=== PATIENT | female | born 1960 | race Caucasian/White ===

== ENCOUNTER 2021-12-17 13:00 | Emergency (ER) | payer OTHER ==
[~2021-12-17] VITALS: Ht 167.6 cm; Wt 86.2 kg
[2021-12-17] MEDS ORDERED: AMOCLA875 PO ×2 (13:27→13:44)
== END 2021-12-17 13:58 | disposition home or self-care (01) ==
LOC: ER 13:00
DX: S61.052A Open bite of left thumb without damage to nail, initial encounter (principal); Z23 Encounter for immunization; W55.01XA Bitten by cat, initial encounter
CPT/HCPCS: 90471; 90714; 99282-25